=== PATIENT | female | born 1965 | race Caucasian/White ===

== ENCOUNTER 2017-04-15 08:48 | Day surgery (SDC) | payer BC ==
[~2017-04-15 08:48] MED LIST: Lactated Ringers 1,000 ML IV SCH
[2017-04-15] MEDS ORDERED: Propofol 200 MG/20 ML SDV ONE ×2 (10:05→11:04)
[2017-04-15] MEDS ORDERED: fentaNYL 100 MCG/2 ML SDV ONE (10:06)
[2017-04-15 11:26] VITALS: BP 140/87
--- NOTE | 2017-04-15 14:07 | OR ---
DATE OF SURGERY: 04/15/2017 REFERRING PROVIDER: Annette Vanessa M.D. PRE-OPERATIVE DIAGNOSES: 1. Screening colonoscopy. This is the patient's first colonoscopy. 2. Positive family history of colon cancer. Mother diagnosed at age 74, was stage III colon cancer. There is also maternal uncle with colon cancer. POST-OPERATIVE DIAGNOSES: Mild diverticulosis, otherwise normal colon. PROCEDURE: Colonoscopy. SURGEON: Georgi Barba M.D. ANESTHESIA: Monitored anesthesia care. BOWEL PREP: Good. Eleni is a 52-year-old female who was brought to the endoscopy suite after discussing risks and benefits of the procedure. Informed consent was obtained for conscious sedation and colonoscopy with or without biopsy and/or polypectomy. We also discussed possibility of missed lesions. Pre-procedure exam was unremarkable. IV, oxygen, and monitors were placed. The patient was placed in the left lateral decubitus position. Sedation was administered and a digital rectal exam was performed which was unremarkable. Colonoscope was passed into the rectum and slowly advanced all the way to the cecum. Cecum was viewed and photographed. The colonoscope was slowly withdrawn and the mucosa was closed observed in a direct circumferential manner. The ascending colon was unremarkable. The transverse colon was unremarkable. The descending and sigmoid colon did reveal some mild diverticulosis without any evidence of inflammation. Retroflexion was performed and rectal mucosa was unremarkable. Scope was removed. The patient tolerated the procedure well. The patient was monitored until that baseline status. Discharge instructions were reviewed and the patient was discharged in good condition. COMPLICATIONS: None. TOTAL TIME: 13 minutes. ESTIMATED BLOOD LOSS: None. RECOMMENDATIONS/FOLLOW-UP: Given the patient's family history of colon cancer, I would recommend repeating colonoscopy again in 5 years. I would like to thank Dr. Annette Vanessa for this referral. DMB: 04/15/2017 13:13:19 MODL: 04/15/2017 14:00:34 /[id number]
== END 2017-04-15 12:35 | disposition home or self-care (01) ==
LOC: VM.SDS 08:48
PROVIDERS: ATTEND Family Medicine
DX: Z12.11 Encounter for screening for malignant neoplasm of colon (principal); K57.30 Diverticulosis of large intestine without perforation or abscess without bleeding; I10 Essential (primary) hypertension; K76.0 Fatty (change of) liver, not elsewhere classified; Z79.899 Other long term (current) drug therapy; Z79.51 Long term (current) use of inhaled steroids; Z88.8 Allergy status to other drugs, medicaments and biological substances; Z88.5 Allergy status to narcotic agent; Z80.0 Family history of malignant neoplasm of digestive organs; Z96.652 Presence of left artificial knee joint; Z90.49 Acquired absence of other specified parts of digestive tract; Z98.890 Other specified postprocedural states
CPT/HCPCS: J2704; J3010; J7120